=== PATIENT | male | born 1970 | race Caucasian/White ===

== ENCOUNTER 2018-05-02 13:06 | Day surgery (SDC) | payer OTHER ==
[~2018-05-02 13:06] MED LIST: PROPOFOL 200 MG INJ
[2018-05-02] MEDS ORDERED: LIDOCAINE 2% (SDV) 5 ML INJ (15:38)
[2018-05-02] MEDS ORDERED: PROPOFOL 40 ML (15:38)
== END 2018-05-02 16:11 | disposition home or self-care (01) ==
LOC: GIL 13:06
DX: K20.9 Esophagitis, unspecified (principal); K31.7 Polyp of stomach and duodenum; K29.70 Gastritis, unspecified, without bleeding; I10 Essential (primary) hypertension; E66.9 Obesity, unspecified; Z68.36 Body mass index [BMI] 36.0-36.9, adult
CPT/HCPCS: 43239; 88305; 88312; 88313